=== PATIENT | female | born 2000 | race Two or more races ===

== ENCOUNTER 2022-03-28 19:20 | Inpatient (IN) ==
[2022-03-28 20:01] LABS: Appearance Urine Clear (Clear); Bilirubin Urine Negative (Negative); Blood Urine Negative (Negative); Color Urine Yellow; Glucose Urine UA Negative (Negative); Ketones Urine Negative (Negative); Leukocyte Esterase Urine Negative (Negative); Nitrite Urine Negative (Negative); Protein Urine Negative (Negative); Specific Gravity Urine 1.007 (1.000-1.030); Urobilinogen Urine Negative (Negative)
[2022-03-28 20:19] LABS: Hematocrit (blood only) 24.5 % (34.1-44.9); Hemoglobin 6.6 g/dl (12.0-16.0); Mean Corpuscular Hgb Conc 26.9 g/dL (32.0-36.0); Mean Corpuscular Volume 55.7 fL (80.0-100.0); Platelet Count 441 K/uL (130-400); RDW Coefficient of Variation 22.1 % (11.5-14.5); RDW Standard Deviation 41.1 fL (36.4-46.3); White Blood Count 7.76 K/ul (4.8-10.8)
[2022-03-28 20:27] LABS: Alanine Aminotransferase 9 U/L (7-52); Albumin Globulin Ratio 1.4 (0.9-2); Albumin Level 4.3 gm/dl (3.4-5.0); Alkaline Phosphatase 63 U/L (34-104); Anion Gap 6 (3-11); Aspartate Aminotransferase 12 U/L (13-39); BUN Creatinine Ratio 21.3 (10-20); Bilirubin,Total 0.6 mg/dl (0.2-1.0); Blood Urea Nitrogen 10 mg/dl (6-23); Calcium 9.5 mg/dl (8.5-10.1); Carbon Dioxide 25 mmol/L (21-32); Chloride 104 mmol/L (98-107); Creatinine Clr Calc Pharmacy 167.4 ml/min; Est GFR (African American) > 150.0 ml/min; Est GFR (Non-African American) 142.2 ml/min; Globulin 3.1 gm/dl (2.5-4.0); Glucose 82 mg/dl (70-99(Fasting)); Potassium 3.4 mmol/L (3.5-5.1); Sodium 135 mmol/L (136-145); Total Protein 7.4 gm/dl (6.0-8.3)
[2022-03-28 20:38] LABS: Anisocytosis Present; Basophils # (auto) 0.06 K/uL (0-0.2); Basophils % (auto) 0.8 %; Eosinophils # (auto) 0.06 K/uL (0-0.50); Eosinophils % (auto) 0.8 %; Hypochromasia Present; Immature Granulocytes # (auto) 0.02 K/uL (0.00-0.02); Immature Granulocytes % (auto) 0.3 %; Lymphocytes % (auto) 29.6 %; Microcytosis Present; Monocytes # (auto) 0.78 K/uL (0.24-0.82); Monocytes % (auto) 10.1 %; Neutrophils # (auto) 4.54 K/uL (1.4-6.5); Neutrophils % (auto) 58.4 %; Ovalocytes 1+; Schistocytes 1+; Target Cells 1+; Tear Drop Cells 1+
[2022-03-28 20:41] LABS: Reticulocytes # 0.04 10^6/uL (0.02-0.10)
[2022-03-28 20:43] LABS: Pregnancy Test, Serum Negative (Negative)
[2022-03-28] MEDS ORDERED: SODIUM CHLORIDE 0.9% 250 ML IV PRN (20:58)
--- NOTE | 2022-03-28 21:04 | Emergency Department Note ---
Impression & Plan Anemia, Near syncope, Syncope ED Provider Note NAME: GISSELL REID AGE: 21 SEX: F : 2000 ARRIVES VIA: Walk-In INFORMANT: Patient, ED PROVIDER(S): Jose Garcia DO CHIEF COMPLAINT: Weakness HPI: The patient is a 21-year-old female who presented to the emergency department for an evaluation of generalized weakness. The patient has had multiple syncopal episodes or near syncopal episodes since the onset of symptoms. She states that she is been feeling weak over the course the last few days. She denies having any black or bloody bowels. She has had no heavy periods. She does not think that she is at this time. She does have a history of hypothyroidism. She states that she has been compliant with her outpatient medications. She is currently a student at [employer]. She was going to go to the [facility] but when she started walking up the stairs she became very dizzy and lightheaded. Her friends were with her state that she had a pulse rate according to her watch it was around 140 bpm. The patient states that she is never had similar symptoms in the past. The patient states that she has a history of hypothyroidism. She states that she has been compliant with outpatient medication regimen. ROS: See above HPI for pertinent positives & negatives. A total of 10 systems reviewed and were otherwise negative. PAST MEDICAL HISTORY: See Below PAST SURGICAL HISTORY: See Below FAMILY HISTORY: See Below SOCIAL HISTORY: See Below HOME MEDICATIONS: See Below ALLERGIES: See Below VITALS: See Below PHYSICAL EXAMINATION: GENERAL: Patient is awake alert in no acute distress patient is resting comfortably and showing no signs of anxiety EYES: The conjunctivae are pale. The pupils are round and reactive. EARS, NOSE, MOUTH AND THROAT: The nose is without any evidence of any deformity. NECK: The neck is nontender and supple. RESPIRATORY: Normal respiratory effort is noted there is no evidence of wheezing rhonchi or rales CARDIOVASCULAR: Regular rate and rhythm noted there no murmurs rubs or gallops normal S1 normal S2. GASTROINTESTINAL: The abdomen is soft. Abdomen is nontender. MUSCULOSKELETAL/EXTREMITIES: There is no evidence of gross deformity full range of motion is noted in the hips and shoulders. SKIN: There is no obvious evidence of any rash. There are no petechiae, pallor or cyanosis noted. NEUROLOGIC: Patient is awake alert and oriented x3 strength is symmetric patellar reflexes are 2+ bilaterally MEDICAL DECISION MAKING: The patient is a 21-year-old female who presented to the emergency department after having multiple syncopal episodes. The patient was found to have tachy cardia and generalized weakness. The patient did not have any focal neurologic deficits. I discussed the patient's laboratory studies with her. Ultimately she was found to have signs of anemia on CBC. This would be a new finding for her as far she knows. I also discussed her presentation with her father. Via telephone. I discussed her condition with the on-call [facility] hospitalist. They have agreed to evaluate the patient in the emergency department for further management and disposition. I did discuss the possibility of blood transfusion with the patient. I consented her for blood transfusion. Triage Nursing notes reviewed. Prior medical records reviewed Vital Signs: reviewed and remarkable for tachycardia. Differential diagnosis: Infection, dehydration, metabolic abnormality, hypo/hyperglycemia, electrolyte disturbance, anemia, hypoxia, cardiac sources, intracerebral event, toxicologic, neurologic, as well as other pathologies. ER treatment provided: See below Diagnostics interpreted by me: ECG: EKG was obtained in the emergency department. My interpretation is normal sinus rhythm at 97 bpm. There is no ectopy. There is no acute ST segment a bnormalities noted. Cardiac Monitoring: An order was placed for continuous cardiac monitoring. The monitor shows a rate of 94 bpm with sinus rhythm. Laboratory studies: As stated above and show below. Imaging studies: See below Consultation(s): Discussed this case with Dr. [facility]. Past Med/Surg History Medical History Hypothyroidism Family History (Updated 03/28/22 @ 23:45 by Devin Plata MD) Father Hypothyroid Social History (Updated 03/28/22 @ 23:46 by Devin Plata MD) Smoking Status: Never smoker Hx Alcohol Use: No Hx Substance Use: No Feels Safe at Home: Yes Results & Data (ED) Vital Signs Vital Signs - 24 hr 03/28/22 19:24 03/28/22 21:00 03/28/22 21:01 Temperature 36.9 C Temperature Source Temporal Artery Scan Pulse Rate 98 H 95 H Pulse Rate [Apical] Pulse Rate from SpO2 Sensor Respiratory Rate 19 22 Respiratory Effort / Characteristics Non-Labored Blood Pressure 118/71 125/74 Blood Pressure [Left Arm] Blood Pressure Mean 86 91 Blood Pressure Mean [Left Arm] Pulse Oximetry 100 Oxygen Delivery Method Room Air Sepsis Recent Fever Within 48 Hours No Sepsis New/Unexplained Change in Mental Status N/A Sepsis Action Taken by Nursing No Action Required 03/28/22 21:10 03/28/22 21:20 03/28/22 21:21 Temperature Temperature Source Pulse Rate 101 H 93 H Pulse Rate [Apical] Pulse Rate from SpO2 Sensor 99 H 102 H Respiratory Rate 17 20 Respiratory Effort / Characteristics Blood Pressure 113/52 L Blood Pressure [Left Arm] Blood Pressure Mean 72 Blood Pressure Mean [Left Arm] Pulse Oximetry 100 100 Oxygen Delivery Method Sepsis Recent Fever Within 48 Hours Sepsis New/Unexplained Change in Mental Status Sepsis Action Taken by Nursing 03/28/22 21:21 03/28/22 21:30 03/28/22 21:30 Temperature Temperature Source Pulse Rate 92 H 99 H Pulse Rate [Apical] Pulse Rate from SpO2 Sensor 91 H 97 H Respiratory Rate 20 16 Respiratory Effort / Characteristics Blood Pressure 106/69 Blood Pressure [Left Arm] Blood Pressure Mean 81 Blood Pressure Mean [Left Arm] Pulse Oximetry 97 100 Oxygen Delivery Method Sepsis Recent Fever Within 48 Hours Sepsis New/Unexplained Change in Mental Status Sepsis Action Taken by Nursing 03/28/22 21:40 03/28/22 21:50 03/28/22 22:00 Temperature Temperature Source Pulse Rate 101 H 100 H 86 Pulse Rate [Apical] Pulse Rate from SpO2 Sensor 89 Respiratory Rate 19 23 17 Respiratory Effort / Characteristics Blood Pressure Blood Pressure [Left Arm] Blood Pressure Mean Blood Pressure Mean [Left Arm] Pulse Oximetry 100 Oxygen Delivery Method Sepsis Recent Fever Within 48 Hours Sepsis New/Unexplained Change in Mental Status Sepsis Action Taken by Nursing 03/28/22 22:02 03/28/22 22:10 03/28/22 22:20 Temperature Temperature Source Pulse Rate 93 H 91 H 100 H Pulse Rate [Apical] Pulse Rate from SpO2 Sensor 92 H 91 H Respiratory Rate 21 16 18 Respiratory Effort / Characteristics Blood Pressure Blood Pressure [Left Arm] Blood Pressure Mean Blood Pressure Mean [Left Arm] Pulse Oximetry 98 100 Oxygen Delivery Method Sepsis Recent Fever Within 48 Hours Sepsis New/Unexplained Change in Mental Status Sepsis Action Taken by Nursing 03/28/22 22:30 03/28/22 22:30 03/28/22 22:40 Temperature Temperature Source Pulse Rate 89 89 Pulse Rate [Apical] Pulse Rate from SpO2 Sensor 86 90 Respiratory Rate 15 13 Respiratory Effort / Characteristics Blood Pressure 89/58 L Blood Pressure [Left Arm] Blood Pressure Mean 68 Blood Pressure Mean [Left Arm] Pulse Oximetry 98 99 Oxygen Delivery Method Sepsis Recent Fever Within 48 Hours Sepsis New/Unexplained Change in Mental Status Sepsis Action Taken by Nursing 03/28/22 22:45 03/28/22 22:45 03/28/22 22:50 Temperature Temperature Source Pulse Rate 97 H 102 H Pulse Rate [Apical] Pulse Rate from SpO2 Sensor 101 H 102 H Respiratory Rate 21 17 Respiratory Effort / Characteristics Blood Pressure 110/72 Blood Pressure [Left Arm] Blood Pressure Mean 84 Blood Pressure Mean [Left Arm] Pulse Oximetry 100 100 Oxygen Delivery Method Sepsis Recent Fever Within 48 Hours Sepsis New/Unexplained Change in Mental Status Sepsis Action Taken by Nursing 03/28/22 23:00 03/28/22 23:00 03/28/22 23:00 Temperature Temperature Source Pulse Rate 88 Pulse Rate [Apical] 94 H Pulse Rate from SpO2 Sensor 92 H Respiratory Rate 19 18 Respiratory Effort / Characteristics Blood Pressure 107/63 Blood Pressure [Left Arm] 107/63 Blood Pressure Mean 77 Blood Pressure Mean [Left Arm] 77 Pulse Oximetry 100 100 Oxygen Delivery Method Room Air Sepsis Recent Fever Within 48 Hours Sepsis New/Unexplained Change in Mental Status Sepsis Action Taken by [facility] Medications Current Medication List: was personally reviewed by me Laboratory Data Attestation: I reviewed the patient's lab results. Result diagrams: 03/28/22 19:51 03/28/22 19:51 Lab Results 03/28/22 03/28/22 03/28/22 Range/Units 19:44 19:51 19:51 WBC 7.76 (4.8-10.8) K/ul RBC 4.40 (3.93-5.22) M/uL Hgb 6.6 L* (12.0-16.0) g/dl Hct 24.5 L (34.1-44.9) % MCV 55.7 L (80.0-100.0) fL MCH 15.0 L (25.0-34.0) pg MCHC 26.9 L (32.0-36.0) g/dL RDW Std Deviation 41.1 (36.4-46.3) fL RDW Coeff of Teo 22.1 H (11.5-14.5) % Plt Count 441 H (130-400) K/uL Immature Gran % (Auto) 0.3 % Neut % (Auto) 58.4 % Lymph % (Auto) 29.6 % [place] % (Auto) 10.1 % Eos % (Auto) 0.8 % Baso % (Auto) 0.8 % Reticulocyte % (Auto) (0.5-2.0) % Neut # (Auto) 4.54 (1.4-6.5) K/uL Lymph # (Auto) 2.30 (1.2-3.4) K/uL [place] # (Auto) 0.78 (0.24-0.82) K/uL Eos # (Auto) 0.06 (0-0.50) K/uL Baso # (Auto) 0.06 (0-0.2) K/uL Reticulocyte # (0.02-0.10) 10^6/uL Immature Gran # (Auto) 0.02 (0.00-0.02) K/uL Hypochromasia Present Anisocytosis Present Microcytosis Present Target Cells 1+ Tear Drop Cells 1+ Ovalocytes 1+ Schistocytes 1+ Sodium 135 L (136-145) mmol/L Potassium 3.4 L (3.5-5.1) mmol/L Chloride 104 (98-107) mmol/L Carbon Dioxide 25 (21-32) mmol/L Anion Gap 6 (3-11) BUN 10 (6-23) mg/dl Creatinine 0.47 L (0.6-1.2) mg/dl Est Cr Clr Drug Dosing 167.4 ml/min Est GFR ( Amer) > 150.0 ml/min Est GFR (Non-Af Amer) 142.2 ml/min BUN/Creatinine Ratio 21.3 H (10-20) Glucose 82 (70-99(Fasting)) mg/dl Calcium 9.5 (8.5-10.1) mg/dl Total Bilirubin 0.6 (0.2-1.0) mg/dl AST 12 L (13-39) U/L ALT 9 (7-52) U/L Alkaline Phosphatase 63 (34-104) U/L Total Protein 7.4 (6.0-8.3) gm/dl Albumin 4.3 (3.4-5.0) gm/dl Globulin 3.1 (2.5-4.0) gm/dl Albumin/Globulin Ratio 1.4 (0.9-2) TSH (0.300-4.500) uIu/ml HCG, Qual (Negative) Urine Color Yellow Urine Appearance Clear (Clear) Urine pH 6.0 (4.5-7.5) Ur Specific [place] 1.007 (1.000-1.030) Urine Protein Negative (Negative) Urine Glucose (UA) Negative (Negative) Urine Ketones Negative (Negative) Urine Blood Negative (Negative) Urine Nitrite Negative (Negative) Urine Bilirubin Negative (Negative) Urine Urobilinogen Negative (Negative) Ur Leukocyte Esterase Negative (Negative) POC Ur Test (NEG) Blood Type Blood Type Recheck Antibody Screen Crossmatch 03/28/22 03/28/22 03/28/22 Range/Units 19:51 19:51 19:51 WBC (4.8-10.8) K/ul RBC (3.93-5.22) M/uL Hgb (12.0-16.0) g/dl Hct (34.1-44.9) % MCV (80.0-100.0) fL MCH (25.0-34.0) pg MCHC (32.0-36.0) g/dL RDW Std Deviation (36.4-46.3) fL RDW Coeff of Teo (11.5-14.5) % Plt Count (130-400) K/uL Immature Gran % (Auto) % Neut % (Auto) % Lymph % (Auto) % [place] % (Auto) % Eos % (Auto) % Baso % (Auto) % Reticulocyte % (Auto) 1.0 (0.5-2.0) % Neut # (Auto) (1.4-6.5) K/uL Lymph # (Auto) (1.2-3.4) K/uL [place] # (Auto) (0.24-0.82) K/uL Eos # (Auto) (0-0.50) K/uL Baso # (Auto) (0-0.2) K/uL Reticulocyte # 0.04 (0.02-0.10) 10^6/uL Immature Gran # (Auto) (0.00-0.02) K/uL Hypochromasia Anisocytosis Microcytosis Target Cells Tear Drop Cells Ovalocytes Schistocytes Sodium (136-145) mmol/L Potassium (3.5-5.1) mmol/L Chloride (98-107) mmol/L Carbon Dioxide (21-32) mmol/L Anion Gap (3-11) BUN (6-23) mg/dl Creatinine (0.6-1.2) mg/dl Est Cr Clr Drug Dosing ml/min Est GFR ( Amer) ml/min Est GFR (Non-Af Amer) ml/min BUN/Creatinine Ratio (10-20) Glucose (70-99(Fasting)) mg/dl Calcium (8.5-10.1) mg/dl Total Bilirubin (0.2-1.0) mg/dl AST (13-39) U/L ALT (7-52) U/L Alkaline Phosphatase (34-104) U/L Total Protein (6.0-8.3) gm/dl Albumin (3.4-5.0) gm/dl Globulin (2.5-4.0) gm/dl Albumin/Globulin Ratio (0.9-2) TSH 1.461 (0.300-4.500) uIu/ml HCG, Qual Negative (Negative) Urine Color Urine Appearance (Clear) Urine pH (4.5-7.5) Ur Specific [place] (1.000-1.030) Urine Protein (Negative) Urine Glucose (UA) (Negative) Urine Ketones (Negative) Urine Blood (Negative) Urine Nitrite (Negative) Urine Bilirubin (Negative) Urine Urobilinogen (Negative) Ur Leukocyte Esterase (Negative) POC Ur Test (NEG) Blood Type Blood Type Recheck Antibody Screen Crossmatch 03/28/22 03/28/22 03/28/22 Range/Units 21:15 21:49 22:09 WBC (4.8-10.8) K/ul RBC (3.93-5.22) M/uL Hgb (12.0-16.0) g/dl Hct (34.1-44.9) % MCV (80.0-100.0) fL MCH (25.0-34.0) pg MCHC (32.0-36.0) g/dL RDW Std Deviation (36.4-46.3) fL RDW Coeff of Teo (11.5-14.5) % Plt Count (130-400) K/uL Immature Gran % (Auto) % Neut % (Auto) % Lymph % (Auto) % [place] % (Auto) % Eos % (Auto) % Baso % (Auto) % Reticulocyte % (Auto) (0.5-2.0) % Neut # (Auto) (1.4-6.5) K/uL Lymph # (Auto) (1.2-3.4) K/uL [place] # (Auto) (0.24-0.82) K/uL Eos # (Auto) (0-0.50) K/uL Baso # (Auto) (0-0.2) K/uL Reticulocyte # (0.02-0.10) 10^6/uL Immature Gran # (Auto) (0.00-0.02) K/uL Hypochromasia Anisocytosis Microcytosis Target Cells Tear Drop Cells Ovalocytes Schistocytes Sodium (136-145) mmol/L Potassium (3.5-5.1) mmol/L Chloride (98-107) mmol/L Carbon Dioxide (21-32) mmol/L Anion Gap (3-11) BUN (6-23) mg/dl Creatinine (0.6-1.2) mg/dl Est Cr Clr Drug Dosing ml/min Est GFR ( Amer) ml/min Est GFR (Non-Af Amer) ml/min BUN/Creatinine Ratio (10-20) Glucose (70-99(Fasting)) mg/dl Calcium (8.5-10.1) mg/dl Total Bilirubin (0.2-1.0) mg/dl AST (13-39) U/L ALT (7-52) U/L Alkaline Phosphatase (34-104) U/L Total Protein (6.0-8.3) gm/dl Albumin (3.4-5.0) gm/dl Globulin (2.5-4.0) gm/dl Albumin/Globulin Ratio (0.9-2) TSH (0.300-4.500) uIu/ml HCG, Qual (Negative) Urine Color Urine Appearance (Clear) Urine pH (4.5-7.5) Ur Specific [place] (1.000-1.030) Urine Protein (Negative) Urine Glucose (UA) (Negative) Urine Ketones (Negative) Urine Blood (Negative) Urine Nitrite (Negative) Urine Bilirubin (Negative) Urine Urobilinogen (Negative) Ur Leukocyte Esterase (Negative) POC Ur Test NEG (NEG) Blood Type A Positive Blood Type Recheck A Positive Antibody Screen NEGATIVE Crossmatch See Detail Discharge Plan Visit Data Chief Complaint: Arrhythmia/Palpitations Stated Complaint: ABNORMAL HEART PALPITATIONS THYROID, WEAKNESS, SOB ED Provider: Jose Garcia Discharge Problem: Anemia, Near syncope, Syncope Patient Disposition: Being Evaluated by Hospitalist Forms Stand Alone Forms: My [facility] Referrals Referrals: PCP,NO [Physician] -
--- NOTE | 2022-03-28 22:36 | History & Physical Report ---
Date of Service March 28, 2022 Assessment & Plan (1) Anemia: Plan: 21 year old female w/ hypothyroidism who presents w/ several days of generalized weakness, most likely secondary to anemia, with hemoglobin of 6.6. - no obvious bleeding per HPI - suspect iron deficiency (perhaps slow chronic bleed) and/or thalassemia (MCV 55). ordering hemolysis labs, smear, tick studies, Hb electrophoresis, thalassemia labs - patient will be receiving 1u prbc in total at admission. consider additional and consider IV iron infusion - consider PO iron supplement upon discharge, though w/ caution and await thalassemia testing results - slightly soft BP noted 89/67 (6AM 03/29/22) (2) Near syncope: Plan: - likely secondary to the above (3) Hypothyroidism: Plan: - continue home regimen (4) Hypokalemia: Plan: - repleting. follow bmp Plan FEN/GI: Regular diet. No IV fluids. ppx: SCDs only. chemoppx contraindicated in setting of severe anemia code: full dispo: med tele History of Present Illness Chief Complaint: generalized weakness Primary Care Provider: [facility] 21 year old female w/ hypothyroidism (50mcg levothyroxine daily, increased from 25mcg this summer) who presents w/ several days of generalized weakness, which she attributed to walking and fatigue from school. Usama mention science, transferred from [employer] to [place] this semester. She presented today for tachycardia for to 140s and in the ED she had a Hb of 6.6. She was dizzy, head spinning, near syncopal and slightly dyspneic. HR to 140s per friends checking. Currently feels better. Denies hx of anemia. Took levothyroxine. Denies family hx of thalassemia or sickle cell. Mother had anemia 2/2 bleeding fibroid. Vegetarian. Denies hematemesis, hemoptysis, bloody stool, melena. Last period was Mmd Feb, was not heavier than normal, periods are light. No recent menses. Has not had cbc checked in years. Father w/ hypothyroidism and type 2 diabetes ED course: type and cross obtained. Hb 6.6. Iron and ferritin very low. ecg sinus 97. Allergies Allergy/AdvReac Type Severity Reaction Status Date / Time No Known Allergies Allergy Verified 03/29/22 05:49 Home Medications Medication Instructions Recorded Confirmed Type levothyroxine 50 mcg PO DAILY 03/29/22 03/29/22 History mecobalamin (vitamin B12) 1,000 1,000 mcg sublingual DAILY #90 tabs 03/29/22 Rx mcg disintegrating tablet,sublingual multivitamin with minerals 1 tab PO DAILY #90 tabs 03/29/22 Rx Past Med/Surg History Medical History Hypothyroidism Family History (Updated 03/29/22 @ 05:49 by Devin Plata MD) Father Hypothyroid Diabetes Social History (Updated 03/28/22 @ 23:46 by Devin Plata MD) Smoking Status: Never smoker Hx Alcohol Use: No Hx Substance Use: No Communication Ability: Effective Staff [employer] Required: No Beliefs That Will Affect Care: None Current Living Situation: Other Current Living Situation Comment: Roomate Other Information That Helps Us Care for You: No Feels Safe at Home: Yes Assistive Devices: None Review of Systems Review of Systems: All systems reviewed & are unremarkable except as noted in HPI & below (Slight headache. Hungry. ) Physical Exam Physical Exam: General: Grossly A&O. NAD. Cooperative. Conversational. HEENT: Atraumatic, normocephalic. EOMI. PERRL. Pulm: CTAB. -wheezes, -rales, -rhonchi. No respiratory distress. Cardiac: RRR, -mrg. Radial pulses intact and symmetrical. Integ: warm, dry, intact Msk: Moving all extrem. Results & Data Results & Data ([facility]) Vital Signs (Past 12 Hours) Vital Signs Temp Pulse Resp BP Pulse Ox O2 Del Method 03/28/22 19:24 36.9 C 98 H 19 118/71 100 Room Air Laboratory Results Cardiac Enzymes 03/28/22 03/28/22 Range/Units 19:51 19:51 AST 12 L (13-39) U/L Lactate Dehydrogenase 204 (86-244) U/L CBC 03/28/22 Range/Units 19:51 WBC 7.76 (4.8-10.8) K/ul RBC 4.40 (3.93-5.22) M/uL Hgb 6.6 L* (12.0-16.0) g/dl Hct 24.5 L (34.1-44.9) % Plt Count 441 H (130-400) K/uL Neut # (Auto) 4.54 (1.4-6.5) K/uL Lymph # (Auto) 2.30 (1.2-3.4) K/uL [place] # (Auto) 0.78 (0.24-0.82) K/uL Eos # (Auto) 0.06 (0-0.50) K/uL Baso # (Auto) 0.06 (0-0.2) K/uL Comprehensive Metabolic Panel 03/28/22 Range/Units 19:51 Sodium 135 L (136-145) mmol/L Potassium 3.4 L (3.5-5.1) mmol/L Chloride 104 (98-107) mmol/L Carbon Dioxide 25 (21-32) mmol/L BUN 10 (6-23) mg/dl Creatinine 0.47 L (0.6-1.2) mg/dl Glucose 82 (70-99(Fasting)) mg/dl Calcium 9.5 (8.5-10.1) mg/dl AST 12 L (13-39) U/L ALT 9 (7-52) U/L Alkaline Phosphatase 63 (34-104) U/L Total Protein 7.4 (6.0-8.3) gm/dl Albumin 4.3 (3.4-5.0) gm/dl Intake and Output 03/28/22 03/28/22 03/29/22 14:59 22:59 06:59 Intake Total 0 / 0 Balance 0 / 0 Intake: Intake (Blood Product) Amt 0 / 0 Packed Cells, Leukoreduced 0 / 0 Unit [id number] Other: Weight 63.7 kg 63.7 kg Weight Measurement Method Chair Scale Chair Scale Patient Weight 03/29/22 06:59 Weight 63.7 kg Code Status & VTE Plan Code Status full VTE Prophylaxis Plan VTE Prophylaxis will be ordered: Yes Supervising Physician Co-Signing Physician Notes Attending addendum: I have physically seen this patient, have supervised the medical residents activities, and agree with the H&P unless as otherwise noted. Assessment and Plan: Symptomatic anemia/near syncope- The patient will be admitted to telemetry for serial cardiac enzymes, serial EKG's, cardiac rhythm monitoring and a 2-D echocardiogram with Dopplers.- Hemoccult stools Order studies: Iron studies, SPEP, reticulocyte count, peripheral smear, malabsorption, etc. Transfuse 1 unit PRBCs due to his significant symptomatology Remaining orders and notations as noted Resident Activity Tracking Resident Involvement: Resident Care Provided Care Provided: Adult Hospital Medicine (1) Anemia Anemia type: unspecified type Qualified Code(s): D64.9 - Anemia, unspecified
[2022-03-29 00:25] LABS: Iron < 10 mcg/dl (35-150); Unsaturated Iron Binding Cap 509 mcg/dl (155-355)
[2022-03-29 00:33] LABS: Ferritin 1.2 ng/ml (8-388); Lyme Ab IgG w/WB Rflx Negative (Negative); Lyme Ab IgM w/WB Rflx Negative (Negative)
[2022-03-29] MEDS ORDERED: SODIUM CHLORIDE 0.9% 250 ML IV PRN (01:18)
[2022-03-29 01:19] LABS: Reticulocyte % 1.3 % (0.5-2.0); Reticulocytes # 0.06 10^6/uL (0.02-0.10)
[2022-03-29] MEDS ORDERED: LEVOTHYROXINE SODIUM 50 MCG TABLET PO SCH ×2 (06:30)
--- NOTE | 2022-03-29 07:22 | Electrocardiogram Report ---
Test Reason : Blood Pressure : / mmHG Vent. Rate : 097 BPM Atrial Rate : 097 BPM P-R Int : 112 ms QRS Dur : 074 ms QT Int : 346 ms P-R-T Axes : 057 048 042 degrees QTc Int : 439 ms Poor data quality, interpretation may be adversely affected Normal sinus rhythm Normal ECG No previous ECGs available Confirmed by Genaro Patterson ([id number]) on 03/29/2022 7:22:18 AM Referred By: REFERRED SELF Confirmed By:Prince Patterson
[2022-03-29] MEDS ORDERED: IRON SUCROSE 200 MG in 0.9 % SODIUM CHLORIDE 100 ML IV ONE (08:30)
[2022-03-29 08:48] LABS: Hematocrit (blood only) 27.7 % (34.1-44.9); Hemoglobin 7.9 g/dl (12.0-16.0); Mean Corpuscular Hemoglobin 16.9 pg (25.0-34.0); Mean Corpuscular Hgb Conc 28.5 g/dL (32.0-36.0); Mean Corpuscular Volume 59.3 fL (80.0-100.0); Platelet Count 381 K/uL (130-400); RDW Coefficient of Variation 28.8 % (11.5-14.5); RDW Standard Deviation 58.3 fL (36.4-46.3); Red Blood Count 4.67 M/uL (3.93-5.22); White Blood Count 6.01 K/ul (4.8-10.8)
[2022-03-29 08:57] LABS: INR 1.1 (0.9-1.1); Partial Thromboplastin Ratio 1.1; Partial Thromboplastin Time 28.9 Seconds (21.0-31.0); Prothrombin Time 11.3 Seconds (9.0-12.0)
[2022-03-29] MEDS ORDERED: POTASSIUM CHLORIDE PWD 20 MEQ PACK PO ONE (09:00)
[2022-03-29 09:12] LABS: Anion Gap 6 (3-11); BUN Creatinine Ratio 24.3 (10-20); Blood Urea Nitrogen 9 mg/dl (6-23); Calcium 9.3 mg/dl (8.5-10.1); Carbon Dioxide 24 mmol/L (21-32); Chloride 108 mmol/L (98-107); Creatinine Clr Calc Pharmacy 212.7 ml/min; Est GFR (African American) > 150.0 ml/min; Est GFR (Non-African American) > 150.0 ml/min; Glucose 83 mg/dl (70-99(Fasting)); Potassium 3.9 mmol/L (3.5-5.1); Sodium 138 mmol/L (136-145)
[2022-03-29 09:14] LABS: ANC (manual) 3.37 K/uL (1.4-6.5); Basophils # (manual) 0.12 K/uL (0-0.2); Basophils % (manual) 2 %; Eosinophils # (manual) 0.06 K/uL (0-0.50); Eosinophils % (manual) 1 %; Lymphocytes % (manual) 40 %; Monocytes # (manual) 0.12 K/uL (0.24-0.82); Monocytes % (manual) 2 %; Neutrophils # (manual) 3.37 K/uL (1.4-6.5); Neutrophils % (manual) 56 %
[2022-03-29 09:28] LABS: Folate (Folic Acid) 10.8 ng/ml (>5.38)
[2022-03-29] MEDS ORDERED: CYANOCOBALAMIN 1000 MCG/ML VIAL IM SCH (10:00)
--- NOTE | 2022-03-29 16:13 | Discharge Summary ---
Date of Service date of admission - March 28, 2022 date of discharge - March 29, 2022 Admission HPI Per Admitting Provider 21 year old female w/ hypothyroidism (50mcg levothyroxine daily, increased from 25mcg this summer) who presents w/ several days of generalized weakness, which she attributed to walking and fatigue from school. [employer], transferred from [employer] [facility] to [place] this semester. She presented today for tachycardia for to 140s and in the ED she had a Hb of 6.6. She was dizzy, head spinning, near syncopal and slightly dyspneic. HR to 140s per friends checking. Currently feels better. Denies hx of anemia. Took levothyroxine. Denies family hx of thalassemia or sickle cell. Mother had anemia 2/2 bleeding fibroid. Vegetarian. Denies hematemesis, hemoptysis, bloody stool, melena. Last period was Mmd Feb, was not heavier than normal, periods are light. No recent menses. Has not had cbc checked in years. Father w/ hypothyroidism and type 2 diabetes ED course: type and cross obtained. Hb 6.6. Iron and ferritin very low. ecg sinus 97. Principal Diagnosis 1. near-syncope 2nd to severe anemia 2. anemia - 2nd to severe iron deficiency and vitamin B12 deficiency Discharge Exam gen - NAD, WD/WN skin - pallor; no rash mouth - MMM heart - RRR, s1 s2, no murmur lungs - CTA b/l abd - soft NT ND BS+; no HSM ext - no edema, pulses 2+ b/l Discharge Data Allergies Allergy/AdvReac Type Severity Reaction Status Date / Time No Known Allergies Allergy Verified 04/02/22 07:49 Procedures Performed 1. PRBCs x 1 unit 2. IV venofer (iron sucrose) x 1 infusion Hospital Course (1) Iron deficiency anemia: SEVERE iron deficiency as manifested by ferritin level of 1.2, Fe level <10, high TIBC, etc. Patient denies menorrhagia. She denies overt rectal bleeding or melena although does report dyspepsia and stomach upset. She is a lacto ovo vegetarian and due to congregation reasons also fasts at least 1x/week. Thus, tt is possible that her iron deficiency is simply due to lack of appropriate iron in her diet. I cannot rule out celiac disease or other primary GI based pathology contributing to her iron deficiency. She received 1 unit of PRBCs while here. She received 1 iron infusion while here. Presenting hemoglobin was 6.6; discharge hemoglobin was 7.9. Peripheral smear by pathology and genetic testing for thalaseemia were pending at time of discharge. I recommended the following - * additional IV iron infusion within a few days of discharge ([facility] to arrange); she ultimately will need likely 3-5 iron infusions in total given th e severity * referral to [facility] in [place] for consideration of additional testing (EGD, celiac w/u, etc) * repeat CBC within a week of discharge to ensure stability * addition of more iron-rich foods to her diet (handout given) * replacement of low vitamin B12 Of note - patient adamantly denied any symptoms of anorexia or bulimia. She did report significant stress related to school at [facility], however. I encouraged her to seek out mental health counseling on campus for this. (2) Vitamin B12 deficiency: Vitamin B12 level = 142. Folate was wnl. Gave a B12 injection while here, then recommended daily vitamin B12 1000mcg SL. The B12 deficiency is likely due to her vegan lifestyle and regular fasting. I cannot rule out pernicious anemia (she has autoimmune tendencies based on hypothyroidism, etc). No overt symptoms or signs of Crohn's disease. (3) Near syncope: secondary to severe anemia. telemetry was normal during her stay. following transfusion of PRBCs she had no dizziness or troubles walking. (4) Hypothyroidism: TSH was 1.4. Continue synthroid 50mcg daily. (5) Hypokalemia: Repleted/resolved. Total Time Total Time Spent Total Time Spent (In Minutes): 45 Discharge Plan Discharge Items Patient Disposition: Home - Self-Care Reason For Visit: ANEMIA with initial hemoglobin of 6.6 Discharge Diagnosis: 1. SEVERE anemia - 1 unit of blood given; 1 unit of iron given. Discharge hemoglobin level 7.9 (normal >12). 2. SEVERE iron deficiency. 3. Vitamin B12 deficiency. Activity: As commented below Activity Comment: NO strenuous activities. NO gym, running, biking, swimming. Lifting: Gradually increase as tolerated Bathing: No limitations Exercise/Sports: Wait until after follow-up appointment Driving/Machine Use: No limitations Non-emergency contact: Primary Care Provider and Customer Experience Professional Call non-emergency contact if: you have any medication questions and your symptoms worsen Follow-up/Referrals: Ernie Patel [Physician] - (we will contact [facility] this week to obtain a follow-up appointment for you ) [facility] [Primary Care Provider] - (You will need to contact [facility] to schedule a follow-up appointment for THIS WEEK. ) Diet: Vegetarian (Lacto-Ovo) Addtl Attending Provider Instructions: Ms Melvin, You were hospitalized due to severe anemia. Your presenting hemoglobin level was 6.6 (normal is >12). All of your symptoms - dizziness, fatigue, weakness - were due to the severe anemia. We discovered 2 causes of your anemia -- SEVERE iron deficiency and vitamin B12 deficiency. You received 1 unit of blood and 1 intravenous iron infusion. Your discharge hemoglobin level is 7.9. We checked your folate level and this returned normal. Thalaseemia testing (an inherited cause of anemia) was sent and was pending at the time of your discharge. You are likely Vitamin B12 deficient because of your vegetarian diet. It is also possible you could have "pernicious anemia" which is when your body develops an antibody preventing absorption of B12 from the food you eat. Either way you need vitamin B12 supplementation. Your vitamin B12 level was 142 (normal >180, but most young folks are 400-500). Please stay on 1000mcg of vitamin B12 daily indefinitely. You will need a repeat B12 level in 2-3 months to ensure it is normalizing. Your iron deficiency could be due to a combination of factors including - * not enough iron in your diet due to your vegetarian lifestyle * intestinal/GI blood loss from any number of digestive diseases * celiac disease * blood loss due to your menstrual cycles You will need additional iron infusions as well as an appointment with gastroenterology (GI) to determine if you need additional tests. Recommendations - 1. vitamin B12 1000mcg daily sublingually. Purchase [id number]. 2. multivitamin with minerals daily - purchase [id number]. 3. more [id number] foods and iron-rich foods -- see "vegetarian" handout. 4. iron infusion - we will call you on 04/01/22, to give you your appointment date/time for your next iron infusion. You may need about 5 of these in total to replenish your iron stores. 5. for your stress and anxiety please self-refer to the [facility] mental wellness clinic on-campus. [facility] can help you with this as well. 6. follow-up with [facility] THIS WEEK. You will need a repeat CBC blood count to check your hemoglobin levels to ensure they are stable. 7. no heavy exertional activities until your anemia is better. Light activities - walking, yoga, etc - are ok at this time. Return to [facility] if - * you have dizziness, lightheadedness, or feel like you could pass out * you have chest tightness or pain * you have palpitations / heart racing * you have extreme fatigue / weakness * any other concerns It was my pleasure to care for you! Dr Damon Pending Studies at Discharge: Yes Studies:: Peripheral blood smear; thalaseemia testing. Stand-Alone Forms: My [facility], Smoking Cessation Medications and DC Order Prescriptions: New multivitamin with minerals Tablet 1 tab PO DAILY Qty: 90 3RF Rx Instructions: purchase [id number] mecobalamin (vitamin B12) 1,000 mcg tablet,disintegrating 1,000 mcg sublingual DAILY Qty: 90 3RF Rx Instructions: place tablet under tongue and allow to dissolve for at least 30 secs before s wallowing; purchase [id number] Continued levothyroxine 1 tablet 50 mcg PO DAILY No Action folic acid 1 mg Tablet 1 mg PO DAILY Discharge Orders: Discharge Order (Routine); Ordered 03/29/22 Ordered By: Leonel Romano/Other Patient Handouts: Anemia, Eating a Vegetarian Diet, ED Anemia, Iron-Deficiency (Adult) Admission Data Admit Date/Time: 03/28/22 23:57 Attending Provider: Leonel Damon Admit Provider: Devin Plata Primary Care Provider: [facility] Other Providers: Kwame Driscoll Other Interventions: Discharge Summary Assessment (RN) Last Done: 03/29/22 16:09 Coding Level of Care Code D/C DAY MANAGEMENT >30 MINS Diagnoses Iron deficiency anemia D50.9 Vitamin B12 deficiency E53.8 Near syncope R55 Hypothyroidism E03.9 Hypokalemia E87.6
--- NOTE | 2022-03-30 01:35 | Billing Data ---
Date of Service March 30, 2022 Coding Level of Care Code 89446 Initial Inpt Care Lvl 3
[2022-03-30 07:05] LABS: Hypochromasia Present; Polychromasia 1+
[2022-03-30 07:06] LABS: Poikilocytosis Present
[2022-03-30 07:07] LABS: Microcytosis Present
[2022-03-30 07:09] LABS: Ovalocytes 1+; Target Cells 1+; Tear Drop Cells 1+
[2022-03-30 07:10] LABS: Anisocytosis Present; Schistocytes 1+
[2022-04-01 18:12] LABS: Albumin 3.9 g/dL (3.8-4.8); Alpha 1 Globulin 0.3 g/dL (0.2-0.3); Alpha 2 Globulin 0.7 g/dL (0.5-0.9); Beta-1-Globulin 0.5 g/dL (0.4-0.6); Beta-2-Globulin 0.3 g/dL (0.2-0.5); Gamma Globulin 1.4 g/dL (0.8-1.7); Monoclonal Protein Band 1 DNR g/dL (NONE DETECTED); Monoclonal Protein Band 2 DNR g/dL (NONE DETECTED); Monoclonal Protein Band 3 DNR g/dL (NONE DETECTED); Total Protein 7.1 g/dL (6.1-8.1)
== END 2022-03-29 16:46 | disposition home or self-care (01) | DRG 812 ==
LOC: ED 19:20 → SUATTDRO 23:57 → 2N 23:57